=== PATIENT | female | born 1995 | race African-American/Black ===

== ENCOUNTER 2017-05-29 07:28 | Emergency (ER) | payer SELFPAY ==
[~2017-05-29] VITALS: Ht 165.1 cm; Wt 90.7 kg
[2017-05-29 07:35] VITALS: BP 152/88
[2017-05-29 08:12] LABS: Urine Bacteria FEW /hpf (None Seen); Urine Blood Negative /uL (Negative); Urine Mucus FEW (None Seen); Urine WBC 2 /hpf (0 - 5)
== END 2017-05-29 09:06 | disposition home or self-care (01) ==
LOC: ER 07:28
DX: M54.89 Other dorsalgia (principal); F17.210 Nicotine dependence, cigarettes, uncomplicated; F12.10 Cannabis abuse, uncomplicated
CPT/HCPCS: 74176; 81001; 81025